=== PATIENT | male | born 2000 | race Hispanic/Latino ===

== ENCOUNTER 2018-05-12 17:33 | Emergency (ER) | payer MEDICAID, OTHER ==
[2018-05-12] MEDS ORDERED: SODIUM CHLORIDE 0.9% 1000ML 1,000 ML IV ONE ×2 (18:27→20:05)
[2018-05-12] MEDS ORDERED: ONDANSETRON HCL 4 MG/2 ML VIAL ONE (18:27)
[2018-05-12 18:29] LABS: BASOPHILS % (AUTO) 0.3 % (0.0-5.0); EOSINOPHILS % (AUTO) 1.2 % (0.0-8.0); HEMATOCRIT 49.6 % (42-54); LYMPHOCYTES % (AUTO) 9.5 % (21.0-51.0); MEAN CORPUSCULAR HEMOGLOBIN 31.8 pg (27.0-33.0); MEAN CORPUSCULAR HGB CONC 34.5 g/dL (32.0-36.0); MEAN CORPUSCULAR VOLUME 92.3 fL (80-100); MONOCYTES % (AUTO) 5.1 % (3.0-13.0); NEUTROPHILS % (AUTO) 83.9 % (40.0-77.0); PLATELET COUNT (AUTO) 181 K/uL (130-400); RED BLOOD CELL COUNT(AUTO) 5.37 MIL/uL (4.50-6.20); RED CELL DISTRIBUTION WIDTH 13.5 % (11.0-15.5); WHITE BLOOD COUNT (AUTO) 9.1 K/uL (4.8-10.8)
[2018-05-12 18:40] LABS: POTASSIUM 3.9 mmol/L (3.5-5.1)
[2018-05-12 18:44] LABS: ALBUMIN 3.7 g/dL (3.5-5.0); BILIRUBIN,TOTAL 0.7 mg/dL (0.2-1.0); TOTAL PROTEIN, SERUM 7.3 g/dL (6.0-8.3)
[2018-05-12 19:36] LABS: APPEARANCE,URINE Clear (CLEAR); BILIRUBIN,URINE Negative (NEGATIVE); COLOR,URINE Yellow (YELLOW); GLUCOSE, URINE (UA) Negative (NEGATIVE); KETONES,URINE Trace mg/dL (NEGATIVE); LEUKOCYTE ESTERASE ,URINE Negative (NEGATIVE); NITRATE,URINE Negative (NEGATIVE); OCCULT BLOOD,URINE Negative (NEGATIVE); PH,URINE 6.5 (5.0-8.0); PROTEIN,URINE Negative (NEGATIVE)
[2018-05-12] MEDS ORDERED: ACETAMINOPHEN EXTRA STRENGTH 500 MG TABLET ONE (21:38)
== END 2018-05-12 22:42 | disposition home or self-care (01) ==
LOC: EDH 17:33
DX: A08.4 Viral intestinal infection, unspecified (principal); R50.81 Fever presenting with conditions classified elsewhere; Z72.0 Tobacco use
CPT/HCPCS: 36415; 76705; 80053; 81003; 82150; 83690; 84484; 85025; 87804 ×2; 93005; 96361; 96374; 99284; J2405; J7030 ×2

== ENCOUNTER 2024-05-24 13:59 | Emergency (ER) | payer SELFPAY ==
[~2024-05-24] VITALS: Ht 175.3 cm; Wt 167.8 kg
--- NOTE | 2024-05-24 14:11 | EKG ---
[facility] Test Date: 2024-05-24 Test Time: 14:09:07 Pat Name: ESTELA TREVINO Department: [facility] Room: Gender: M Field Party Manager: [id number] : 2000 Requested By: LEYDI WILSON Order Number: [id number] Reading MD: Danielle Loo Measurements Intervals [place] Rate: 107 P: 64 [place]: 152 QRS: -47 QRSD: 98 T: 39 QT: 338 QTc: 452 Interpretive Statements Sinus tachycardia LAD, consider left anterior fascicular block ST elev, probable normal early repol pattern Compared to ECG 05/12/2018 18:08:37 ST (T wave) deviation now present Left-axis deviation no longer present Electronically Signed On 05-26-2024 08:39:41 [employer] by Danielle Loo Please click the below link to view image of tracing.
--- NOTE | 2024-05-24 14:11 | ERN ---
ED Note History of Present Illness Stated Complaint: BODY ACHES Chief Complaint: Syncope Time Seen by MD: 14:05 Dictation: PATIENT IS A 23-YEAR-OLD MALE HERE WITH HIS WITH COMPLAINTS OF HAVING A SYNCOPAL EPISODE WHILE HE WAS SITTING DOWN USING THE TOILET THIS MORNING. HE STATES HE HAD JUST FINISHED AND SAID HE GOT DIZZY AND FELL OFF THE COMMODE. HE HAS NO COMPLAINTS OF PAIN NO LOC NO NAUSEA VOMITING. HE STATES HE HAS BEEN SICK SINCE YESTERDAY WHEN HIS CO-WORKER CAME TO WORK WITH FLU-LIKE SYMPTOMS. HE DENIES CHEST PAIN BACK PAIN HEADACHE, DOES NOT HAVE A PRIMARY CARE DOCTOR IN HIS UNAWARE OF ANY CHRONIC COMORBIDITIES. NIH IS 0, GAIT IS STEADY TO TRIAGE. Allergies: Coded Allergies: No Known Drug Allergies (Unverified Allergy, Unknown, 05/24/24) Home Meds Active Scripts Ibuprofen (Ibuprofen 800 mg Tab) 800 Mg Tab, 800 MG PO Q8H PRN for fever or pain, #30 TAB 0 Refills Prov:LEYDI WILSON SHOE TREER 05/24/24 Albuterol Sulfate (Ventolin Hfa/Proventil Hfa/Proair Hfa) 90 Mcg Puff, 2 PUFF IH Q4H for WHEEZING, #1 INHALER 0 Refills Prov:LEYDI WILSON NP 05/24/24 Oseltamivir Phosphate (Tamiflu) 75 Mg Cap, 75 MG PO BID for 5 Days, #10 CAP Prov:LEYDI WILSON SHOE TREER 05/24/24 Past Medical History RN Note Reviewed/Agreed w/PFSH: Yes Review of System Dictation CONSTITUTIONAL: NEGATIVE EXCEPT FOR HPI FEVER CHILLS HEAD/FACE: NEGATIVE EXCEPT FOR HPI EENT: NEGATIVE EXCEPT FOR HPI RESPIRATORY: NEGATIVE EXCEPT FOR HPI GASTROINTESTINAL/ABDOMINAL: NEGATIVE EXCEPT FOR HPI GENITOURINARY: NEGATIVE EXCEPT FOR HPI MUSCULOSKELETAL: NEGATIVE EXCEPT FOR HPI INTEGUMENTARY: NEGATIVE EXCEPT FOR HPI NEUROLOGICAL/PSYCH: NEGATIVE EXCEPT FOR HPI NEAR-SYNCOPE HEMATOLOGIC/LYMPHATIC: NEGATIVE EXCEPT FOR HPI ALL SYSTEMS NEGATIVE, EXCEPT NOTED ABOVE. 13 POINT REVIEW OF SYSTEMS ASSESSED AND ALL NEGATIVE EXCEPT FOR ABOVE. Initial Vital Sign VS Vital Signs Date Time Temp Pulse Resp B/P (MAP) Pulse Ox O2 Delivery O2 Flow Rate FiO2 05/24/24 14:04 100.6 103 20 134/81 95 Room Air 05/24/24 14:27 0 21 Physical Exam Dictation VITAL SIGNS REVIEWED GENERAL APPEARANCE: ALERT, ORIENTED X 3, NO ACUTE DISTRESS, WELL DEVELOPED, NOURISHED. MORBIDLY OBESE HEAD AND FACE: NON-TRAUMATIC. EYES: PERRL, PINK CONJUNCTIVAS, EYELID NO TRAUMA, ANTERIOR CHAMBER WITH ARCUS SENILIS. EARS: PINNAS INTACT AND NO SIGNS OF TRAUMA OR ERYTHEMA EAR CANALS CLEAR AND NO DISCHARGE TM NO ERYTHEMA NOSE: NO DISCHARGE, NO BLEEDING. OROPHARYNX: MOUTH NORMAL, TONGUE PINK, PHARYNX CLEAR,NO ERYTHEMA, TONSILS NO EXUDATES, NO ABSCESSES NOTED, MUCOUS MEMBRANE MOIST NECK: SUPPLE, NON-TENDER, NO THYROMEGALY, NO MASSES, NO JVD, NO BRUITS BREAST:DEFERRED CHEST:NO TENDERNESS, NO CREPITUS, NO PARADOXICAL MOVEMENT, NO RETRACTIONS LUNGS:CLEAR, WELL-VENTILATED, SYMMETRIC, NO RALES, NO WHEEZING, NO RHONCHI, NO STRIDOR, GOOD BREATH SOUNDS BILATERALLY HEART: REGULAR RATE, REGULAR RHYTHM, NO MURMUR, NO GALLOPS VASCULAR: NO PERIPHERAL EDEMA, ABDOMEN: SOFT, POSITIVE BOWEL SOUNDS, NONDISTENDED, NO GUARDING, NONTENDER, NO REBOUND, NO MASSES NO HEPATOMEGALY, NO SPLENOMEGALY, NO CHAIDEZ'S SIGN, NO HERNIAS. RECTAL: DEFERRED GENITAL: DEFERRED NEUROLOGICAL: NORMAL SPEECH, MOTOR FUNCTION INTACT, SENSORY FUNCTION INTACT MUSCULOSKELETAL: NECK NONTENDER, FULL RANGE OF MOTION, BACK NONTENDER, FULL RANGE OF MOTION, EXTREMITIES: NONTENDER, FULL RANGE OF MOTION SKIN: COLOR PINK, DRY, NO TURGOR, NO RASH, NO LACERATIONS, NO ABRASIONS, NO CONTUSIONS. LYMPHATIC: DEFERRED Results (Laboratory/Radiology) Laboratory/Radiology Laboratory Tests Test 05/24/24 14:09 05/24/24 14:19 Influenza Type A Antigen Positive For Type A Influenza Type B Antigen Negative For Type B SARS-CoV-2 Antigen (Rapid) PRESUMPTIVE NEGATIVE Group A Streptococcus Rapid negative (NEGATIVE) White Blood Count 8.3 K/uL (4.8-10.8) Red Blood Count 5.13 MIL/uL (4.50-6.20) Hemoglobin 16.3 g/dL (14.0-18.0) Hematocrit 46.9 % (42-54) Mean Corpuscular Volume 91.4 fL (79-99) Mean Corpuscular Hemoglobin 31.8 pg (27.0-33.0) Mean Corpuscular Hemoglobin Concent 34.8 g/dL (32.0-36.0) Red Cell Distribution Width 12.7 % (11.0-15.5) Platelet Count 225 K/uL (130-400) Mean Platelet Volume 9.8 fL (7.5-10.5) Immature Granulocyte % (Auto) 0.6 % (0-1) Neutrophils (%) (Auto) 86.2 % (40.0-77.0) H Lymphocytes (%) (Auto) 5.4 % (21.0-51.0) L Monocytes (%) (Auto) 7.0 % (3.0-13.0) Eosinophils (%) (Auto) 0.4 % (0.0-8.0) Basophils (%) (Auto) 0.4 % (0.0-5.0) Neutrophils # (Auto) 7.2 K/uL (1.8-7.7) Lymphocytes # (Auto) 0.5 K/uL (1.0-4.8) L Monocytes # (Auto) 0.6 K/uL (0.1-1.0) Eosinophils # (Auto) 0.03 K/uL (0.00-0.70) Basophils # (Auto) 0.03 K/uL (0.00-0.20) Absolute Immature Granulocyte (auto 0.05 K/uL (0-1) Nucleated Red Blood Cells 0.0 % (0.0-0.19) White Cell Morphology Comment See comments Sodium Level 135 mmol/L (136-145) L Potassium Level 3.9 mmol/L (3.5-5.1) Chloride Level 101 mmol/L (101-111) Carbon Dioxide Level 30 mmol/L (21-32) Blood Urea Nitrogen 10 mg/dL (7-18) Creatinine 1.1 mg/dL (0.5-1.3) Glomerular Filtration Rate Calc 96 mL/min (>90) Random Glucose 121 mg/dL (70-105) H Total Calcium 8.1 mg/dL (8.5-10.1) L Troponin I High Sensitivity < 4 ng/L (4-75) L Labs Reviewed?: Yes EKG Comment: EKG SINUS TACHYCARDIA/HEART RATE 107/LEFT ANTERIOR FASCICULAR BLOCK ED Course ED Course Orders Procedure Category Date Status Time Rapid (Group A Strep) LAB 05/24/24 Complete 14:05 Covid19 (Sars Antigen LAB 05/24/24 Complete Rapid) 14:05 Influenza Type A & B, LAB 05/24/24 Complete Rapid 14:05 Ibuprofen 800 Mg Tab PHA 05/24/24 Complete (Motrin) 14:30 12 Lead Ekg Tracing- EKG 05/24/24 Complete Technical 14:05 Cbc With Differential LAB 05/24/24 Complete 14:05 Troponin I High LAB 05/24/24 Complete Sensitivity 14:05 Basic Metabolic Panel LAB 05/24/24 Complete 14:05 Current Medications Medications (Trade) Dose Ordered Sig/Khloe Route PRN Reason Start Time Stop Time Status Last Admin Dose Admin Ibuprofen (moTRIN) 800 mg ONCE ONCE PO 05/24/24 14:30 05/24/24 14:31 DC 05/24/24 14:33 Vital Signs Date Time Temp Pulse Resp B/P (MAP) Pulse Ox O2 Delivery O2 Flow Rate FiO2 05/24/24 15:35 98.4 97 18 134/77 98 Room Air* 0 21 05/24/24 14:33 100.6 05/24/24 14:27 100.6 101 16 132/78 98 Room Air* 0 21 05/24/24 14:04 100.6 103 20 134/81 95 Room Air 1455 PATIENT HAS POSITIVE INFLUENZA A. CARDIAC WORKUP LABS ARE ALL NEGATIVE MILDLY ELEVATED GLUCOSE WE WILL BE DISCHARGED HOME WITH INFLUENZA A AND NEAR- SYNCOPE TOLD TO FOLLOW UP WITH A DOCTOR AND GIVEN A LIST ALONG WITH SUPPORTIVE MEDS FOR INFLUENZA HEART Score Response (Comments) Value History: Low suspicion (0) 0 EKG: Normal 0 Age: < 45yrs (0) 0 Risk Factors: No known risk factors (0) 0 Total 0 Medical Decision Making MDM MEDICAL DISCHARGE MAKING BASED ON SWABS FOR FLU COVID AND STREP. ALSO BASIC LABS AND AN EKG TO RULE OUT CARDIAC EVENT. CARDIAC PORTION OF WORKUP COMPLETELY NEGATIVE PATIENT DIAGNOSED WITH INFLUENZA A DX & DISP Disposition: Discharge Departure Impression: Primary Impression: Influenza A Additional Impressions: Hyperglycemia, Vasovagal near syncope, Obesity Condition: Stable Scripts Ibuprofen (Ibuprofen 800 mg Tab) 800 Mg Tab 800 MG PO Q8H PRN for fever or pain, #30 TAB 0 Refills Prov: LEYDI WILSON SHOE TREER 05/24/24 Albuterol Sulfate (Ventolin Hfa/Proventil Hfa/Proair Hfa) 90 Mcg Puff 2 PUFF IH Q4H for WHEEZING, #1 INHALER 0 Refills Prov: LEYDI WILSON SHOE TREER 05/24/24 Oseltamivir Phosphate (Tamiflu) 75 Mg Cap 75 MG PO BID for 5 Days, #10 CAP Prov: LEYDI WILSON SHOE TREER 05/24/24 Additional Instructions: FOLLOW-UP WITH PRIMARY CARE PROVIDER IN 1 TO 2 DAYS. TAKE MEDICATIONS DIRECTED HERE IN THE EMERGENCY ROOM. OKAY TO CONTINUE HOME MEDICATIONS UNLESS OTHERWISE DISCUSSED DURING YOUR VISIT IN THE EMERGENCY ROOM TODAY. RETURN TO YOUR NEAREST EMERGENCY ROOM IF SYMPTOMS WORSEN OR IF THERE IS NO IMPROVEMENT. CALL 911 IF YOU NEED IMMEDIATE ASSISTANCE. TAKE TYLENOL OR MOTRIN [id number] NEEDED AND IF NO CONTRAINDICATIONS ARE PRESENT. INCREASE ORAL HYDRATION. A WOUND CULTURE OR URINE CULTURE WAS ORDERED HERE IN THE EMERGENCY ROOM DEPARTMENT PLEASE FOLLOW-UP WITH PRIMARY CARE PROVIDER AND ADVISE THEM TO GET REPEAT PORTS FROM OUR FACILITY. IF YOU HAD ANY ESAU WRAP/SPLINTS THAT WERE APPLIED HERE, PLEASE DO NOT REMOVE THEM UNTIL YOU SEE YOUR PRIMARY CARE OR SPECIALTY. NO WORK UNTIL CLEARED BY YOUR PRIMARY CARE DOCTOR. TAKE TAMIFLU DIRECTED UNTIL GONE. INCREASE YOUR WATER INTAKE. USE ALBUTEROL EVERY4 HOURS WHILE AWAKE FOR SHORTNESS A BREATH. Referrals: SELF,REFERRAL (PCP) Time of Disposition: 14:56 I have reviewed the case, and I agree with, Diagnosis and Plan I performed a substantive portion of the visit. I have reviewed and personally made and approve the management plan that is documented in the notes by myself with TEN/resident. I acknowledged full responsibility for the patient's management plan. LEYDI WILSON NP May 24, 2024 14:11 CHERYL ENRIQUEZ DO May 24, 2024 15:55
[2024-05-24 14:29] LABS: BASOPHILS # (AUTO) 0.03 K/uL (0.00-0.20); BASOPHILS % (AUTO) 0.4 % (0.0-5.0); EOSINOPHILS # (AUTO) 0.03 K/uL (0.00-0.70); EOSINOPHILS % (AUTO) 0.4 % (0.0-8.0); HEMATOCRIT 46.9 % (42-54); IMMATURE GRANULOCYTE ABSOLUTE 0.05 K/uL (0-1); LYMPHOCYTES # (AUTO) 0.5 K/uL (1.0-4.8); LYMPHOCYTES % (AUTO) 5.4 % (21.0-51.0); MEAN CORPUSCULAR HEMOGLOBIN 31.8 pg (27.0-33.0); MEAN CORPUSCULAR HGB CONC 34.8 g/dL (32.0-36.0); MEAN CORPUSCULAR VOLUME 91.4 fL (79-99); MONOCYTES # (AUTO) 0.6 K/uL (0.1-1.0); NEUTROPHILS # (AUTO) 7.2 K/uL (1.8-7.7); NEUTROPHILS % (AUTO) 86.2 % (40.0-77.0); PLATELET COUNT (AUTO) 225 K/uL (130-400); RED BLOOD CELL COUNT(AUTO) 5.13 MIL/uL (4.50-6.20); RED CELL DISTRIBUTION WIDTH 12.7 % (11.0-15.5); WHITE BLOOD COUNT (AUTO) 8.3 K/uL (4.8-10.8)
[2024-05-24 14:30] LABS: RAPID GROUP A STREP negative (NEGATIVE)
[2024-05-24 14:33] VITALS: TEMP 100.6
[2024-05-24] MEDS: ibuPROFEN 800 MG TAB PO ONE (14:33)
[2024-05-24 14:38] LABS: CREATININE 1.1 mg/dL (0.5-1.3); POTASSIUM 3.9 mmol/L (3.5-5.1)
[2024-05-24 14:38] LABS: COVID19 (SARS ANTIGEN RAPID) PRESUMPTIVE NEGATIVE (NEGATIVE)
[2024-05-24 14:39] LABS: INFLUENZA TYPE B Negative For Type B (NEGATIVE)
[2024-05-24 14:45] LABS: INFLUENZA TYPE A Positive For Type A (NEGATIVE)
[2024-05-24] MEDS ORDERED: IBUP-2077 PO (15:10)
[2024-05-24] MEDS ORDERED: OSEL75 PO (15:10)
[2024-05-24] MEDS ORDERED: ALBUHFA IH (15:10)
[2024-05-24 15:35] VITALS: BP 134/77; PULSE 97; RESP 18; TEMP 98.4; O2SAT 98
== END 2024-05-24 15:34 | disposition home or self-care (01) ==
LOC: EDH 13:59
DX: R55 Syncope and collapse (principal); J10.1 Influenza due to other identified influenza virus with other respiratory manifestations; R73.9 Hyperglycemia, unspecified; E66.9 Obesity, unspecified; Z20.822 Contact with and (suspected) exposure to COVID-19; Z79.899 Other long term (current) drug therapy
CPT/HCPCS: 36415; 80048; 84484; 85025; 87426; 87804; 87880; 93005; 99284